=== PATIENT | male | born 1935 | race Caucasian/White ===

== ENCOUNTER 2021-01-23 12:07 | Observation (INO) | payer MEDICARE, BC ==
[2021-01-23] MEDS ORDERED: Aspirin Chewable 81 MG TAB ONE (12:32)
[2021-01-23 13:02] LABS: #Eosinphils 0.2 10x3/uL (0.0-0.5); #Monocytes 0.5 10x3/uL (0.0-1.1); #Neutrophils 3.5 10x3/uL (1.5-8.4); %Basophils 0.5 % (0.0-2.0); %Eosinophils 2.6 % (0.0-6.0); %Lymphocytes 27.8 % (18.0-47.0); %Monocytes 8.3 % (0.0-10.0); %Neutrophils 60.3 % (40.0-75.0); Hemoglobin 12.4 g/dL (13.5-17.5); Mean Corpuscular HGB CONC 34.3 g/dL (32.0-36.0); Mean Corpuscular Hemoglobin 32.8 pg (27.0-33.0); Mean Corpuscular Volume 95.5 fl (81.2-95.1); Mean Platelet Volume 9.6 fl (7.4-10.4); Platelet Count 189 10x3/uL (150-450); RBC Distribution Width 13.4 % (11.5-14.5); Red Blood Cell (RBC) Count 3.78 10x6/uL (4.32-5.72); White Blood Cell (WBC) Count 5.8 10x3/uL (3.5-10.5)
[2021-01-23 13:17] LABS: ALT (SGPT) 18 U/L (8-55); AST (SGOT) 25 U/L (5-34); Albumin 3.7 g/dL (3.4-4.8); Alkaline Phosphatase 71 U/L (40-110); Anion Gap 11 mmol/L (10-20); BUN (Urea Nitrogen) 21 mg/dL (8.4-25.7); Bilirubin, Total 0.4 mg/dL (0.2-1.2); Calc. Creatinine Clearance 0 mL/min (70-130); Calcium 9.5 mg/dL (7.8-10.44); Carbon Dioxide 25 mmol/L (23-31); Chloride 105 mmol/L (98-107); Globulin 3.3 g/dL (2.4-3.5); Glucose 111 mg/dL (83-110); Potassium 4.3 mmol/L (3.5-5.1); Sodium 137 mmol/L (136-145)
[2021-01-23 17:14] LABS: SARS-CoV-2 NAA Rapid Test Not Detected (NotDetected)
[2021-01-23 18:27] VITALS: BMI 21.6
[2021-01-23] MEDS: Famotidine 20 MG TAB PO SCH (21:20)
[2021-01-24 05:46] LABS: Cardiac Risk 2.6 (Less than 4.5)
[2021-01-24] MEDS: Enoxaparin Sodium 30 MG/0.3 ML SYRINGE SC SCH ×2 (08:43→10:49)
[2021-01-24] MEDS: Famotidine 20 MG TAB PO SCH (08:43)
[2021-01-24] MEDS ORDERED: Multivit, Therapeutic 1 TAB PO SCH (09:00)
[2021-01-24] MEDS ORDERED: Stress 600 With Zinc 1 TAB PO SCH (09:00)
[2021-01-24] MEDS ORDERED: Fish Oil 1,000 MG CAP PO SCH (09:00)
[2021-01-24] MEDS ORDERED: Aspirin 81 mg Enteric Coated Tablet PO SCH (09:00)
[2021-01-24] MEDS ORDERED: Clopidogrel Bisulfate 75 MG TAB PO SCH (11:30)
[2021-01-24 11:50] VITALS: BP 150/61; TEMP 97.8
[2021-01-24] MEDS ORDERED: Atorvastatin Calcium 40 MG TAB PO SCH (21:00)
[2021-01-25] MEDS ORDERED: Clopidogrel Bisulfate 75 MG TAB PO SCH (09:00)
== END 2021-01-24 14:00 | disposition home or self-care (01) ==
LOC: CSHERS 12:07 → CSHTELE 18:11
PROVIDERS: ADMIT Hospitalist; ATTEND Hospitalist
DX: I63.532 Cerebral infarction due to unspecified occlusion or stenosis of left posterior cerebral artery (principal); I10 Essential (primary) hypertension; Z79.82 Long term (current) use of aspirin; Z79.899 Other long term (current) drug therapy; Z20.822 Contact with and (suspected) exposure to COVID-19
CPT/HCPCS: 70450; 70551; 80053; 80061; 84484; 85025; 93005; 93306; 93880; U0002; 96372; G0378; J1650

== ENCOUNTER 2022-02-18 12:44 | Outpatient (CLI) | payer MEDICARE, BC ==
[2022-02-18] MEDS ORDERED: Iopamidol 370 76% 100 ML VIAL ONE (14:11)
== END 2022-02-18 12:45 | disposition home or self-care (01) ==
LOC: CSHCT 12:44
PROVIDERS: ATTEND Internal Medicine Cardiovascular Disease
DX: R09.89 Other specified symptoms and signs involving the circulatory and respiratory systems (principal); I65.23 Occlusion and stenosis of bilateral carotid arteries; I70.8 Atherosclerosis of other arteries; I65.03 Occlusion and stenosis of bilateral vertebral arteries
CPT/HCPCS: 70498; 82565; Q9967

== ENCOUNTER 2022-02-24 20:46 | Emergency (ER) | payer MEDICARE, BC ==
[2022-02-24] MEDS ORDERED: traMADol HCl 50 MG TAB ONE (22:28)
[2022-02-25] MEDS ORDERED: Bacitracin 1 PK ONE (02:15)
[2022-02-25] MEDS ORDERED: traMADol HCl 50 MG TAB ONE (02:55)
== END 2022-02-25 02:46 | disposition home or self-care (01) ==
LOC: CSHERS 20:46
DX: M79.662 Pain in left lower leg (principal); L97.929 Non-pressure chronic ulcer of unspecified part of left lower leg with unspecified severity; E78.5 Hyperlipidemia, unspecified; Z86.73 Personal history of transient ischemic attack (TIA), and cerebral infarction without residual deficits; Z79.899 Other long term (current) drug therapy